=== PATIENT | male | born 1985 | race Caucasian/White ===

== ENCOUNTER 2023-12-09 19:32 | Emergency (ER) | payer OTHER, SELFPAY ==
[2023-12-09] VITALS (13 sets, daily range): BP systolic 135–140; BP diastolic 84–95; PULSE 87–119; TEMP 36.6; O2SAT 95–96; BMI 22.4
--- NOTE | 2023-12-09 20:46 | ECG_ITS ---
[facility] Test Date: 2023-12-09 Pat Name: ALEXANDER ALEX Department: Room: - Gender: Male [employer] Tech: : [id number] Requested By: Order Number: [id number] Reading MD: WALLY DAMON Measurements Intervals [place] Rate: 100 P: 61 IA: 134 QRS: 80 QRSD: 98 T: 58 QT: 342 QTc: 399 Interpretive Statements [address]/T wave changes, can't exclude inferolateral ischemia 9150 abnormal ECG No previous ECG available for comparison Electronically Signed On 12-10-2023 6:52:28 EDT by WALLY DAMON
--- NOTE | 2023-12-09 20:59 | PC.NURSE ---
sent from [facility] for medical clearance.
--- NOTE | 2023-12-09 21:01 | ED.ALCOHOL1 ---
HPI - Alcohol General Chief Complaint: Alcohol Stated Complaint: Clearance for [facility] Time Seen by Provider: 12/09/23 19:50 Source: patient Mode of arrival: walk-in Limitations: no limitations History of Present Illness HPI narrative: This 37-year-old male with a history of alcohol dependence is brought to the emergency department by his mother for medical clearance. He presented to [facility] rehab facility earlier today for alcohol detox but prior to going to the facility drink a large amount of vodka. His mother states he blew a 0.4 at the facility and they stated they could not take him until he was medically cleared. The patient is not having any pain. He states he is feeling fine. He is obviously intoxicated with a strong smell of alcohol on his breath. He has not had any vomiting or diarrhea. The mother states that he was clean from alcohol for 10 months. He is checking into [facility] voluntarily. The mother states she was told that when he is medically cleared [facility] will pick him up at this facility. Related Data Home Medications ?Medication ?Instructions ?Recorded ?Confirmed No Known Home Medications 12/09/23 12/09/23 Allergies Allergy/AdvReac Type Severity Reaction Status Date / Time No Known Drug Allergies Allergy Verified 12/09/23 19:43 Review of Systems ROS Status of ROS 10 or more systems reviewed and unremarkable except as noted in history and below Exam Narrative Exam Narrative: Vital signs and Nursing Notes reviewed: Patient is afebrile, he is tachycardic with a pulse of 118, blood pressure is elevated at 140/95, he is not hypoxic with pulse ox of 96% on room air General: Sleeping but arousable adult male, no respiratory distress HEENT: Normocephalic atraumatic, mucous membranes are moist and pink, eyes are clear, normal conjunctiva, vision is grossly intact, posterior pharynx is normal in appearance. Chest: Lungs are clear to auscultation with good air entry, there is no wheezing rhonchi or rales appreciated no accessory muscle use, patient is speaking in complete sentences-no chest wall tenderness to palpation CVS: Regular rate and rhythm S1-S2, tachycardic with pulse at 119 at triage, no murmurs rubs or gallops, pulses are brisk and equal ABD: Soft, nondistended, nontender, no rebound guarding or rigidity, bowel sounds are normal, no pulsatile masses appreciated Extremities: Moving all extremities, no lower extremity tenderness or swelling noted, negative Homans' sign, pulses are brisk and equal bilaterally Skin: Normal in appearance without rash,pallor, petechiae or purpura Neuro: Intoxicated with slurred speech but otherwise normal neuroexam Constitutional Vital Signs, click to edit/add: Last Vital Signs Temp 98 F 12/09/23 19:38 Pulse 89 12/10/23 00:36 Resp 18 12/10/23 00:36 BP 100/58 12/10/23 00:36 Pulse Ox 97 12/10/23 00:36 O2 Del Method Room Air 12/09/23 19:38 Course Vital Signs Vital signs: Vital Signs Temperature 98 F 12/09/23 19:38 Pulse Rate 119 H 12/09/23 19:38 Respiratory Rate 18 12/09/23 19:38 Blood Pressure 140/95 H 12/09/23 19:38 Pulse Oximetry 96 12/09/23 19:38 Oxygen Delivery Method Room Air 12/09/23 19:38 Temperature 98 F 12/09/23 19:38 Pulse Rate 89 12/10/23 00:36 Respiratory Rate 18 12/10/23 00:36 Blood Pressure 100/58 12/10/23 00:36 Pulse Oximetry 97 12/10/23 00:36 Oxygen Delivery Method Room Air 12/09/23 19:38 MDM - Alcohol MDM Narrative Medical decision making narrative: This 37-year-old male with a history of alcohol dependence is brought to the emergency department for medical clearance. He was checking into [facility] and his alcohol was 0.4. He was then referred to the emergency department for medical clearance before he could be accepted for admission to the facility. He is intoxicated but otherwise neurologically intact. He admitted to drinking a lot of vodka prior to going to the facility. An EKG done upon arrival was sinus tachycardia to 100 bpm. An IV was placed and he was given IV lactated Ringer's and thiamine. Routine labs are reviewed. His lactic acid is elevated 3.6 likely related to his alcohol use. He has a normal white count and hemoglobin. Electrolytes and liver function tests are normal. Alcohol was elevated at 316. He will receive IV fluids for the next several hours until he is more alert and alcohol has come down so he can be transferred back to [facility] for further rehabilitation for his alcohol dependence. Patient was reevaluated around 2 AM and is awake, alert, having a snack and prepared to be released to [facility]. Lab Data Labs: Lab Results 12/09/23 12/09/23 Range/Units 20:48 20:56 WBC 10.5 (4.0-11.0) 10^3/uL RBC 5.48 (4.70-6.10) 10^6/uL Hgb 14.7 (14.0-18.0) g/dL Hct 44.5 (42.0-54.0) % MCV 81.2 (80.0-94.0) fL MCH 26.8 (25.9-34.0) pg MCHC 33.0 (29.9-35.2) g/dL RDW 13.6 (11.0-15.0) % Plt Count 329 (150-450) 10^3/uL MPV 9.1 L (9.5-13.5) fL Neut % (Auto) 48.1 (43.0-75.0) % Lymph % (Auto) 41.4 (20.5-60.0) % [place] % (Auto) 8.8 (1.7-12.0) % Eos % (Auto) 1.0 (0.9-7.0) % Baso % (Auto) 0.5 (0.2-2.0) % Neut # (Auto) 5.1 (1.4-6.5) 10^3/uL Lymph # (Auto) 4.4 H (1.2-3.8) 10^3/uL [place] # (Auto) 0.9 H (0.3-0.8) 10^3/uL Eos # (Auto) 0.1 (0.0-0.7) 10^3/uL Baso # (Auto) 0.1 (0.0-0.1) 10^3/uL Abs Immat Gran (auto) 0.02 (0.00-0.03) 10^3/uL Imm/Tot Granulo (auto) 0.2 (0.0-0.5) % Sodium 142 (136-145) mmol/L Potassium 3.4 L (3.5-5.1) mmol/L Chloride 101 (98-107) mmol/L Carbon Dioxide 29.8 (21.0-32.0) mmol/L Anion Gap 14.6 BUN 10.0 (7.0-18.0) mg/dL Creatinine 0.73 (0.70-1.30) mg/dL Est GFR ( Amer) >60 (>=60) Est GFR (Non-Af Amer) >60 (>=60) BUN/Creatinine Ratio 13.7 Glucose 170 H (74-106) mg/dL Lactate 3.6 H* (0.4-2.0) mmol/L Calcium 9.3 (8.5-10.1) mg/dL Total Bilirubin 0.7 (0.2-1.0) mg/dL AST 27 (15-37) U/L ALT 33 (16-63) U/L Alkaline Phosphatase 68 (46-116) U/L Total Protein 8.3 H (6.4-8.2) g/dL Albumin 4.6 (3.4-5.0) g/dL Globulin 3.7 g/dL Albumin/Globulin Ratio 1.2 Urine Color Lt. yellow (YELLOW) Urine Clarity Clear (CLEAR) Urine pH 6.0 (5.0-9.0) Ur Specific [place] 1.010 (1.005-1.025) Urine Protein Negative (NEG/TRACE) mg/dL Urine Glucose (UA) 100 A (NEGATIVE) mg/dL Urine Ketones 15 A (NEGATIVE) mg/dL Urine Occult Blood Negative (NEGATIVE) Urine Nitrite Negative (NEGATIVE) Urine Bilirubin Negative (NEGATIVE) Urine Urobilinogen 0.2 (0.2-1.0) EU/dL Ur Leukocyte Esterase Negative (NEGATIVE) Urine Opiates Screen Negative (NEGATIVE) Ur Buprenorphine Scrn Negative (NEGATIVE) Ur Oxycodone Screen Negative (NEGATIVE) Urine Methadone Screen Negative (NEGATIVE) Ur Barbiturates Screen Negative (NEGATIVE) U Tricyclic Antidepress Negative (NEGATIVE) Ur Phencyclidine Scrn Negative (NEGATIVE) Ur Amphetamines Screen Negative (NEGATIVE) U Methamphetamines Scrn Negative (NEGATIVE) U Benzodiazepines Scrn Negative (NEGATIVE) Urine Cocaine Screen Negative (NEGATIVE) U Cannabinoids Screen Positive A (NEGATIVE) Ethanol Quant 316 mg/dL ECG Data Attestation: I personally reviewed and interpreted this ECG as follows: (Sinus tachycardia at 100 bpm, normal axis, nonspecific ST changes, no acute ST segment elevation or T wave inversion) Discharge Plan Discharge Chief Complaint: Alcohol Clinical Impression: Alcoholic intoxication Patient Disposition: Home, Self-Care Time of Disposition Decision: 02:09 Condition: Good Prescriptions / Home Meds: No Action No Known Home Medications Print Language: Ecuadorean Instructions: Alcohol Intoxication (ED), Alcohol Use Disorder (ED) Referrals: GALO GARLAND [Primary Care Provider] - 1 week
[2023-12-09 21:12] LABS: Basophils Absolute Auto 0.1 10^3/uL (0.0-0.1); Basophils Percent Auto 0.5 % (0.2-2.0); Eosinophils Absolute Auto 0.1 10^3/uL (0.0-0.7); Hematocrit 44.5 % (42.0-54.0); Hemoglobin 14.7 g/dL (14.0-18.0); Immature Granulocytes Abs Auto 0.02 10^3/uL (0.00-0.03); Immature Granulocytes Pct Auto 0.2 % (0.0-0.5); Lymphocytes Absolute Auto 4.4 10^3/uL (1.2-3.8); Lymphocytes Percent Auto 41.4 % (20.5-60.0); Mean Corpuscular Hemoglobin 26.8 pg (25.9-34.0); Mean Corpuscular Volume 81.2 fL (80.0-94.0); Mean Platelet Volume 9.1 fL (9.5-13.5); Monocytes Absolute Auto 0.9 10^3/uL (0.3-0.8); Monocytes Percent Auto 8.8 % (1.7-12.0); Neutrophils Absolute Auto 5.1 10^3/uL (1.4-6.5); Neutrophils Percent Auto 48.1 % (43.0-75.0); Platelet Count 329 10^3/uL (150-450); Red Blood Count 5.48 10^6/uL (4.70-6.10); Red Cell Distribution Width 13.6 % (11.0-15.0); White Blood Count 10.5 10^3/uL (4.0-11.0)
[2023-12-09 21:14] LABS: Bilirubin Urine NEGATIVE (NEGATIVE); Blood Urine NEGATIVE (NEGATIVE); Clarity Urine CLEAR (CLEAR); Color Urine LT. YELLOW (YELLOW); Glucose Urine UA 100 mg/dL (NEGATIVE); Ketones Urine 15 mg/dL (NEGATIVE); Leukocyte Esterase Urine NEGATIVE (NEGATIVE); Nitrite Urine NEGATIVE (NEGATIVE); Protein Urine NEGATIVE (NEG/TRACE); Urobilinogen Urine 0.2 EU/dL (0.2-1.0)
[2023-12-09 21:15] LABS: Urine Microscopic Indicated NO
[2023-12-09] MEDS: LACTATED RINGER'S SOLUTION 1,000 ML 125 ML IV (21:16)
[2023-12-09] MEDS: THIAMINE MONONITRATE (VIT B1) 100 MG TABLET PO (21:18)
[2023-12-09 21:30] LABS: Alanine Aminotransferase 33 U/L (16-63); Albumin Globulin Ratio 1.2; Albumin Level 4.6 g/dL (3.4-5.0); Alkaline Phosphatase 68 U/L (46-116); Anion Gap 14.6; Aspartate Amino Transferase 27 U/L (15-37); BUN Creatinine Ratio 13.7; Bilirubin Total 0.7 mg/dL (0.2-1.0); Calcium 9.3 mg/dL (8.5-10.1); Carbon Dioxide 29.8 mmol/L (21.0-32.0); Chloride 101 mmol/L (98-107); Estimated GFR (African America >60 (>=60); Estimated GFR (Non-African Ame >60 (>=60); Globulin 3.7 g/dL; Glucose 170 mg/dL (74-106); Potassium 3.4 mmol/L (3.5-5.1); Sodium 142 mmol/L (136-145); Total Protein 8.3 g/dL (6.4-8.2)
[2023-12-09 21:34] LABS: Lactate/Lactic Acid 3.6 mmol/L (0.4-2.0)
[2023-12-09 21:35] LABS: Amphetamine Screen Urine NEGATIVE (NEGATIVE); Barbiturates Screen Urine NEGATIVE (NEGATIVE); Benzodiazepines Screen Urine NEGATIVE (NEGATIVE); Buprenorphine Screen Urine NEGATIVE (NEGATIVE); Cannabinoid Screen Urine POSITIVE (NEGATIVE); Cocaine Screen Urine NEGATIVE (NEGATIVE); Methadone Screen Urine NEGATIVE (NEGATIVE); Methamphetamines Screen Urine NEGATIVE (NEGATIVE); Opiate Screen Urine NEGATIVE (NEGATIVE); Oxycodone Screen Urine NEGATIVE (NEGATIVE); Phencyclidine Screen Urine NEGATIVE (NEGATIVE); Tricyclic Antidepressant Urine NEGATIVE (NEGATIVE)
[2023-12-09 21:37] LABS: Ethanol 316 mg/dL
[2023-12-10 00:36] VITALS: BP 100/58; PULSE 89; O2SAT 97
[2023-12-10 02:24] VITALS: BP 133/90; PULSE 77; O2SAT 98
== END 2023-12-10 02:43 | disposition home or self-care (01) ==
PROVIDERS: Physician Assistant; Emergency Provider Emergency Medicine; PCP Family Medicine
DX: F10.129 Alcohol abuse with intoxication, unspecified (principal); Y90.8 Blood alcohol level of 240 mg/100 ml or more
CPT/HCPCS: 36415; 80053; 80307; 80320; 81003; 83605; 85025; 93005; 99284